=== PATIENT | male | born 1950 | race Caucasian/White ===

== ENCOUNTER 2024-07-05 19:34 | Emergency (ER) | payer MEDICARE, OTHER, SELFPAY ==
[2024-07-05 19:39] VITALS: BP 156/78
[2024-07-05 20:18] LABS: % Basophils 0.3 % (0-2); % Eosinophils 1.7 % (0-6); % Immature Granulocytes 0.5 % (0-0.5); % Lymphocytes 15.5 % (20.5-51.1); % Monocytes 9.8 % (1.7-9.3); % Neutrophils 72.2 % (42.2-75.2); Absolute Eosinophils 0.2 10^3/uL (0-0.7); Absolute Immature Granulocytes 0.1 10^3/uL (0-0.05); Absolute Lymphocytes 1.6 10^3/uL (1.2-3.4); Absolute Neutrophils 7.3 10^3/uL (1.4-6.5); Hematocrit 43.5 % (39.0-52.0); Hemoglobin 14.5 g/dL (13.0-18.0); Mean Corp Hgb Conc. 33.3 g/dL (33.0-37.0); Mean Corpuscular Hgb 29.2 pg (27.0-31.0); Mean Corpuscular Volume 87.7 fL (80.0-94.0); Mean Platelet Volume 9.2 fL (7.4-10.4); Nucleated Red Blood Cells % 0 % (-); Platelet Count 216 10^3/uL (130-400); Red Blood Cell Count 4.96 10^6/uL (4.70-6.10); Red Cell Dist. Width 13.7 % (11.5-14.5); White Blood Cell Count 10.1 10^3/uL (4.8-10.8)
[2024-07-05 20:29] LABS: PT 24.9 Sec (11.4-14.6)
[2024-07-05 20:32] LABS: ALT (SGPT) 28 U/L (0-50); AST (SGOT) 27 U/L (17-59); Albumin 4.3 g/dl (3.5-5.0); Alkaline Phosphatase 112 U/L (38-126); Blood Urea Nitrogen 16 mg/dl (9-20); Carbon Dioxide 26 mmol/L (22-30); Chloride 107 mmol/L (98-107); Glucose 125 mg/dl (70-99); Sodium 140 mmol/L (135-145); Total Bilirubin 0.6 mg/dl (0.2-1.3); Total Protein 7.2 g/dl (6.3-8.2); eGFR > 60.00
[2024-07-05] MEDS: ULTRAM 50 MG PO (20:53)
[2024-07-05] MEDS: DILAUDID 1 MG IV ×2 (21:50→23:21)
[2024-07-05] MEDS: ZOFRAN 4 MG IV (21:51)
[2024-07-05 22:00] VITALS: BP 132/72
--- NOTE | 2024-07-05 22:58 | ED.GENMED ---
History of Present Illness
General
Chief Complaint: Musculo-Skeletal Complaint
Time Seen by Provider: 07/05/24 20:17
History of Present Illness
History of Present Illness:
73-year-old male with history of A-fib on Coumadin presenting after a fall. Patient reports he tripped prior to arrival and fell on the side of his deck, striking his left flank region. Denies head injury or loss of consciousness. Does report
that he twisted his left ankle, however has been able to bear weight. Notes generalized pain to the left chest, left flank, left abdomen. Denies any head injury. He did not take any medication prior to arrival. Denies vomiting. Denies fever or
recent infection. Denies additional acute medical complaints
Phy Exam
Physical Exam
Physical Exam:
General: Well-appearing, no clinical signs of dehydration, nontoxic and in no acute distress
HEENT: protecting airway
Neck: appears supple
CV: Normal heart rate, regular rhythm
Resp: No accessory muscle use, no increased work of breathing, lungs clear to auscultation bilaterally
Abd: Soft and non-distended, generalized tenderness in the left upper quadrant without rebound or guarding.
Extremities: No deformities, mild swelling to the left ankle with range of motion intact. Generalized tenderness. Distal sensation and pulses intact. Tenderness to the mid axillary chest wall without ecchymosis or palpation of hematoma. No
crepitus. Tenderness to the left flank without overlying skin changes
Neuro: alert, no focal neurologic deficit
: deferred
Rectal: deferred
Psych: Normal affect
Skin: Intact
Course
Orders/Labs/Results
Orders:
Orders
07/05/24 20:08
Complete Blood Count/With Diff Urgent
Comprehensive Metabolic Panel Urgent
PT/INR [Prothrombin Time] Urgent
07/05/24 20:46
CT Chest/abd/pel W Iv Cont Urgent
Reason For Exam: L-sided pain after fall, on coumadin
Cardiac Monitoring- Treatment ONCE
07/05/24 20:50
Tramadol HCl [Ultram] 50 mg PO NOW STA
07/05/24 21:23
HYDROmorphone [Dilaudid] 1 mg IV NOW STA
Ondansetron Injectable [Zofran] 4 mg IV NOW STA
07/05/24 22:27
Ankle, left 3 view CR [CR Ankle - Left Min 3 Views ] Urgent
Comment:
Reason For Exam: fall, pain
07/05/24 23:05
HYDROmorphone [Dilaudid] 1 mg IV NOW STA
07/05/24 23:08
Incentive Spirometry [Rx Incentive Spirometry] [RESP] Urgent
Frequency: q1h while awake
Abnormal Lab Results
07/05/24
20:08
Abs Immat Gran (auto) 0.1 H 10^3/uL
(0-0.05)
Absolute Neuts (auto) 7.3 H 10^3/uL
(1.4-6.5)
Absolute Monos (auto) 1.0 H 10^3/uL
(0.1-0.6)
Lymphocytes % 15.5 L %
(20.5-51.1)
Monocytes % 9.8 H %
(1.7-9.3)
PT 24.9 H Sec
(11.4-14.6)
Glucose 125 H mg/dl
(70-99)
07/05/24 20:08
07/05/24 20:08
Vital Signs
Initial and Last Documented VS:
Initial Vital Signs
Temp Pulse Resp BP Pulse Ox
98.4 F 83 18 156/78 98
07/05/24 19:39 07/05/24 19:39 07/05/24 19:39 07/05/24 19:39 07/05/24 19:39
Last Documented Vital Signs
Temp Pulse Resp BP Pulse Ox
98.4 F 70 14 132/72 98
07/05/24 19:39 07/05/24 22:15 07/05/24 22:15 07/05/24 22:00 07/05/24 22:15
MDM/Problems Addressed
MDM/Problems Addressed:
73-year-old male with history of A-fib on Coumadin presenting for left-sided flank and abdominal pain after direct injury prior to arrival. Vital signs significant for mild hypertension.
On exam, patient is resting comfortably, however does appear slightly uncomfortable secondary to pain. GCS of 15, no signs of head trauma. Generalized tenderness to the left mid axillary chest, left flank, left upper abdomen. Given
anticoagulation status and mechanism of injury, will plan for CT chest abdomen and pelvis with contrast. Patient initially declined narcotics, given tramadol for pain. Mild swelling to the left ankle. Will also obtain x-ray imaging.
23:00 - Patient was still having pain, so Dilaudid administered with improvement. CT imaging is overall reassuring. There is evidence of soft tissue contusion without hematoma, fracture, intra-abdominal injury. Ultimately feel stable for
discharge with continued pain management. Patient offered admission for pain control, declined. Will provide incentive spirometry. Strict return precautions communicated and patient verbalized understanding. Patient did have some incidental
findings on CT, made aware and results provided
*Critical Care Note
Total Time (30-74mins, 75-104mins- exclusive of procedures): Not Applicable
ED Attending Note
-
Portions of this chart may have been created with voice recognition software.� Occasional wrong word or��sound alike� substitutions may have occurred due to the inherent limitations of voice recognition software.
Discharge Plan
Departure
Patient Disposition: Home (Routine Discharge)
Date of Disposition: 07/05/24
Time of Disposition: 23:05
Patient with high blood pressure during this ER visit?: No
Condition: Good
Discharge Problem:
Contusion of abdominal wall, Fall
Instructions: Contusion (DC), Preventing falls - ED discharge instructions
Prescriptions:
New
oxycodone-acetaminophen [Percocet] 5-325 mg tablet
1 tab PO Q8H PRN (Reason: Pain) Qty: 10 0RF
Referrals:
UNKNOWN - PT DOES,NOT KNOW [Family Provider] -
Activity Restrictions/Additional Instructions:
You were seen in the emergency department for fall with left sided pain
You were found to have contusion to your abdomen and chest wall. Otherwise no significant traumatic injuries. You were given an incentive spirometer. Please use appropriately.
Please follow-up closely with your primary care physician.
Return to the emergency department for any worsening of your symptoms, or any development of chest pain, difficulty breathing, abdominal pain with persistent vomiting and inability to tolerate food or liquid by mouth (concern for dehydration),
weakness, headache or confusion, fever greater than 100.4, or any additional symptoms that are concerning to you.
Thank you for choosing [facility].
Interventions
Interventions:
*Risk Screen - Suicide Last Done: 07/05/24 19:39
*General Assessment Last Done: 07/05/24 19:39
*Neglect/Abuse Screening Last Done: 07/05/24 19:39
*ED- Fall Risk Assessment Last Done: 07/05/24 19:39
*ED COVID-19 Vaccine History Last Done: 07/05/24 19:39
Discharge Date and Time
Print Language: LAO
== END 2024-07-05 23:46 | disposition home or self-care (01) ==
LOC: EMR 19:34
PROVIDERS: EMERGENCY PHYSICIAN Student in an Organized Health Care Education/Training Program; FAMILY PHYSICIAN Internal Medicine
DX: S30.1XXA Contusion of abdominal wall, initial encounter (principal); W01.0XXA Fall on same level from slipping, tripping and stumbling without subsequent striking against object, initial encounter; I48.91 Unspecified atrial fibrillation; Z79.01 Long term (current) use of anticoagulants
CPT/HCPCS: 99284; 96374; 96375; 96376; 71260; 73610; 74177; 80053; 85025; 85610; Q9967